=== PATIENT | female | born 1935 | race Caucasian/White ===

== ENCOUNTER 2018-04-01 14:31 | Inpatient (IN) | payer MEDICARE, OTHER ==
[~2018-04-01] VITALS: Ht 160 cm; Wt 68.2 kg
[2018-04-01 14:20] VITALS: BP 162/76
[2018-04-01] MEDS ORDERED: Jevity 1.2 Cal/Fiber 1 Liter GT SCH (14:45)
[2018-04-01] MEDS ORDERED: METOPROLOL TARTRATE 25 MG TAB PO ONE (14:45)
[2018-04-01] MEDS ORDERED: METO25TA5 PO (14:45)
[2018-04-01] MEDS ORDERED: HYDROcodone-ACET 5/325MG TAB PO PRN (14:45)
[2018-04-01] MEDS ORDERED: ONDANSETRON HCL 4 MG/2 ML VIAL IV PRN (14:45)
[2018-04-01] MEDS ORDERED: LORazepam 2MG/ML-1ML VIAL IV PRN (14:45)
[2018-04-01] MEDS ORDERED: VALP250S16 PEG (14:45)
[2018-04-01] MEDS ORDERED: QUET25TA37 PO (14:45)
[2018-04-01 15:58] VITALS: BP 158/74
[2018-04-01 17:37] LABS: Basophils # (auto) 0.1 uL; Basophils % (auto) 0.9 % (0.0-2.0); Eosinophils # (auto) 0.1 uL; Eosinophils % (auto) 0.9 % (0.0-7.0); Hematocrit 43.7 % (36.0-46.0); Hemoglobin 14.9 g/dL (12.2-16.2); Lymphocytes # (auto) 2.1 uL; Lymphocytes % (auto) 24.5 % (10.0-50.0); Mean Corpuscular Hemoglobin 33.9 pg (28.0-32.0); Mean Corpuscular Hgb Conc. 34.1 g/dL (32.0-36.0); Mean Corpuscular Volume 99.4 fL (80.0-100.0); Monocytes # (auto) 0.7 uL; Monocytes % (auto) 8.2 % (0.0-12.0); Neutrophils # (auto) 5.5 uL; Neutrophils % (auto) 65.5 % (37.0-80.0); Nucleated Red Blood Cells % 0.2 %; Platelet Count (auto) 185 10^3/uL (140-450); White Blood Cell 8.4 10^3/uL (4.4-10.8)
[2018-04-01 17:45] LABS: INR 0.89 (0.9-1.15); Prothrombin Time 9.6 sec (9.27-12.13)
[2018-04-01 17:57] LABS: Albumin 2.8 g/dL (3.4-5.0); Bilirubin, Total 0.3 mg/dL (0.2-1.0); Calcium 8.8 mg/dL (8.5-10.1)
[2018-04-01] MEDS ORDERED: GASTROGRAFIN 30 ML SOL ONE (18:12)
[2018-04-01 22:00] VITALS: BP 136/105
[2018-04-01] MEDS ORDERED: QUEtiapine FUMARATE 25 MG TAB PO SCH (22:00)
[2018-04-01] MEDS: METOPROLOL TARTRATE 25 MG TAB PO SCH (22:28)
[2018-04-01] MEDS: VALPROIC ACID 250 MG/5 ML ORAL SOLN GT SCH (22:29)
[2018-04-02 05:00] VITALS: BP 145/97
[2018-04-02] MEDS: VALPROIC ACID 250 MG/5 ML ORAL SOLN GT SCH ×2 (06:22→15:06)
[2018-04-02] MEDS ORDERED: LEVOTHYROXINE SODIUM 100 MCG TAB PO SCH (07:00)
[2018-04-02 08:00] VITALS: BP 167/97
[2018-04-02 08:40] VITALS: BP 167/97
[2018-04-02 09:00] VITALS: BP 167/97
[2018-04-02] MEDS ORDERED: Jevity 1.2 Cal/Fiber 1 Liter GT SCH (10:15)
[2018-04-02] MEDS: METOPROLOL TARTRATE 25 MG TAB PO SCH (10:48)
[2018-04-02 13:00] VITALS: BP 154/84
[2018-04-02 14:01] VITALS: BP 154/84
[2018-04-02 15:09] LABS: Urine Amorphous Crystal FEW /hpf (None Seen); Urine Bacteria NONE SEEN /hpf (None Seen); Urine Blood Negative /uL (Negative); Urine Specific Gravity 1.015 (1.001-1.035); Urine WBC 1 /hpf (0 - 5)
== END 2018-04-02 17:15 | disposition hospice, home (50) | DRG 394 ==
LOC: WEST WING 14:31
PROVIDERS: ADMIT Internal Medicine; ATTEND Internal Medicine
PROC: 0D20XUZ Change Feeding Device in Upper Intestinal Tract, External Approach (ICD-10-PCS; principal; 2018-04-01)
DX: Z43.1 Encounter for attention to gastrostomy (principal); I50.32 Chronic diastolic (congestive) heart failure; E44.0 Moderate protein-calorie malnutrition; G40.909 Epilepsy, unspecified, not intractable, without status epilepticus; F03.90 Unspecified dementia, unspecified severity, without behavioral disturbance, psychotic disturbance, mood disturbance, and anxiety; M34.9 Systemic sclerosis, unspecified; I11.0 Hypertensive heart disease with heart failure; R32 Unspecified urinary incontinence; E03.9 Hypothyroidism, unspecified; R19.7 Diarrhea, unspecified; Z79.899 Other long term (current) drug therapy; Z74.01 Bed confinement status; Z68.26 Body mass index [BMI] 26.0-26.9, adult
CPT/HCPCS: 36415; 74021; 80053; 80164; 81001; 84443; 85025; 85610; 85730; 87086